=== PATIENT | female | born 1995 | race Caucasian/White ===

== ENCOUNTER 2021-06-29 07:35 | Emergency (ER) | payer SELFPAY ==
[~2021-06-29] VITALS: Ht 157.5 cm; Wt 61.2 kg
--- NOTE | 2021-06-29 07:40 | NUR ---
CALLED TO TRIAGE NO ANSWER.
--- NOTE | 2021-06-29 07:47 | NUR ---
AT BEDSIDE FOR EVAL.
[2021-06-29 07:48] VITALS: BP 110/70
--- NOTE | 2021-06-29 07:48 | NUR ---
LEFT ELBOW PAIN,S/P GLF 5 DAYS AGO,SEEN AT AN URGENT CARE BUT WAS TOLD THAT IT WAS TOO SWOLLEN TO FIND ABNORMALITY THRU IMAGING. VITALS ARE WITHIN NORMAL LIMITS.
--- NOTE | 2021-06-29 08:12 | NUR ---
PHYSICIANS AND SURGEONS AT BEDSIDE FOR XRAY.
[2021-06-29] MEDS ORDERED: IBUP-1955 PO (08:43)
--- NOTE | 2021-06-29 08:47 | NUR ---
Patient discharged to home in stable condition. Written and verbal after care instructions given. Patient verbalizes understanding of instruction.
[2021-06-29] MEDS ORDERED: KETOROLAC TROMETHAMINE INJ 30 MG/ML VIAL IM ONE (09:00)
== END 2021-06-29 09:00 | disposition home or self-care (01) ==
LOC: ER 07:42
DX: S46.912A Strain of unspecified muscle, fascia and tendon at shoulder and upper arm level, left arm, initial encounter (principal); Z60.2 Problems related to living alone; W18.30XA Fall on same level, unspecified, initial encounter; Y93.89 Activity, other specified; Y92.89 Other specified places as the place of occurrence of the external cause; Y99.8 Other external cause status
CPT/HCPCS: 73080-TC